=== PATIENT | male | born 1950 | race Caucasian/White ===

== ENCOUNTER 2016-07-02 09:51 | Observation (INO) | payer MEDICARE, BC ==
[2016-07-01 17:09] VITALS: BMI 30.2
[~2016-07-02] VITALS: Ht 172.7 cm; Wt 91.3 kg
[2016-07-02] VITALS (28 sets, daily range): BP systolic 101–152; BP diastolic 64–97; PULSE 84–137; RESP 6–20; Ht 172.7 cm; Wt 91.3 kg
[2016-07-02] MEDS ORDERED: MIDAZOLAM 1 MG/ML 2 ML INJ ONE (12:15)
[2016-07-02] MEDS ORDERED: FENTAnyl 50 MCG/ML VIAL ONE (12:15)
[2016-07-02] MEDS ORDERED: ROPIVACAINE 0.5 % 30 ML VIAL ONE (12:15)
[2016-07-02] MEDS ORDERED: BUPIVACAINE 0.25%/EPI (SDV) 30 ML INJ ONE ×2 (12:15→13:21)
[2016-07-02] MEDS ORDERED: GELATIN SIZE 100 SPONGE ONE (12:40)
[2016-07-02] MEDS ORDERED: POLYMYXIN/BACITRACIN 1L IRRIG ONE (12:40)
[2016-07-02] MEDS ORDERED: THROMBIN 5000 UNIT VIAL ONE ×2 (12:40→12:52)
--- NOTE | 2016-07-02 12:47 | HPN ---
Date/Time of Note Date/Time of Note DATE: 07/02/16 TIME: 12:47 Interval H&P Admission Note Pt. seen H&P reviewed: No system changes BREANA CROOK MD July 02, 2016 12:47
[2016-07-02] MEDS ORDERED: CA CHLORIDE 10% 10 ML SYRINGE ONE (12:52)
[2016-07-02] MEDS ORDERED: HEPARIN 1000 UNITS/ML 10 ML INJ ONE (12:53)
[2016-07-02] MEDS ORDERED: PHENYLephrine (100 MCG/ML) 5ML SYG ONE ×2 (12:56→14:02)
[2016-07-02] MEDS ORDERED: CEFAZOLIN 1 GM INJ IV SCH (13:00)
[2016-07-02] MEDS ORDERED: ONDANSETRON 4 MG INJ IV PRN ×2 (13:00→15:00)
[2016-07-02] MEDS ORDERED: ACETAMINOPHEN 325 MG TAB PO PRN (13:00)
[2016-07-02] MEDS ORDERED: DIPHENHYDRAMINE 25 MG CAP PO PRN (13:00)
[2016-07-02] MEDS ORDERED: morphine 10 MG INJ ONE (13:55)
[2016-07-02] MEDS ORDERED: CEFAZOLIN 1 GM/50 ML (PMX) 50 ML IVPB SCH ×2 (14:00)
[2016-07-02] MEDS ORDERED: oxyCODONE 5 MG TAB PO SCH (14:30)
[2016-07-02] MEDS ORDERED: DIPHENHYDRAMINE 50 MG INJ IV PRN (15:00)
[2016-07-02] MEDS ORDERED: morphine (1 MG/ML) 10ML SYRINGE IV PRN (15:00)
[2016-07-02] MEDS ORDERED: EPHEDrine SULFATE 50 MG/5 ML SYG IV PRN (15:00)
[2016-07-02] MEDS ORDERED: MEPERIDINE 25 MG INJ IV PRN (15:00)
[2016-07-02] MEDS ORDERED: LABETALOL HCL 20MG INJ IV PRN (15:00)
[2016-07-02] MEDS ORDERED: hydrALAzine 20 MG INJ IV PRN (15:00)
[2016-07-02] MEDS ORDERED: LIDOCAINE 2% (SDV) 5 ML INJ ONE (17:08)
[2016-07-02] MEDS ORDERED: ROCURONIUM 50 MG INJ ONE (17:08)
[2016-07-02] MEDS ORDERED: ONDANSETRON 4 MG INJ ONE (17:08)
[2016-07-02] MEDS ORDERED: CEFAZOLIN 1 GM INJ ONE (17:08)
[2016-07-02] MEDS ORDERED: ETOMIDATE 20 MG INJ ONE (17:08)
[2016-07-02] MEDS: FENTAnyl 50 MCG/ML VIAL IV PRN ×4 (17:55→18:52)
[2016-07-02] MEDS: morphine (1 MG/ML) 10ML SYRINGE IV PRN ×2 (18:53→19:17)
[2016-07-02] MEDS: morphine 10 MG INJ IV PRN (20:14)
[2016-07-02] MEDS ORDERED: MEPERIDINE 25 MG INJ IV ONE (21:00)
[2016-07-02] MEDS ORDERED: LOSARTAN 50 MG TAB PO SCH (21:00)
[2016-07-02] MEDS ORDERED: METOPROLOL 25 MG TAB PO ONE (23:00)
--- NOTE | 2016-07-02 23:11 | CONS ---
Date/Time of Note Date/Time of Note DATE: 07/02/16 TIME: 23:11 Assessment/Plan Assessment/Plan Additional Assessment/Plan 1. Afib with RVR - transfer to telemetry - cont Digoxin - s/p a dose of Beta-madina. If rate not controlled, will give IV med or start drip - Will obtain 2D-echo and place Cardiology consult - Re-start Xarelto tomorrow 2. s/p Right Foot Arthrodesis - cont pain med - mgmt per Orthp 3. Hx of PE - Re-start Xarelto tomorrow 4. hx of COPD: no sign of exacerbation - oxygen, bronchodilators as needed 5. HTN: BP within goal - cont meds and adjust as needed Consultation Date/Type/Reason Admit Date/Time July 02, 2016 at 09:51 Hx of Present Illness This is a 66 yo with hx of HTN, Afib, PE, COPD who is now s/p right foot Arthrodesis. Consult was placed for medical mgmt. Currently, pt does not have any complaints except intermittent pain at surgical site. He is however in A- fib with RVR with rate as high as 130. He will be transferred to telemetry unit. he has been given Lopressor. Denied chest pain, lightheadedness, shortness of breath. . Social History Smoking Status: Never smoker Exam/Review of Systems Vital Signs Vitals Vital Signs Date Time Temp Pulse Resp B/P Pulse Ox O2 Delivery O2 Flow Rate FiO2 07/02/16 20:15 98.3 103 20 152/97 94 Nasal Cannula 3.0 Exam Constitutional: alert, oriented, well developed Head: atraumatic, normocephalic Eyes: EOMI, PERRL Neck: non-tender, supple Respiratory: clear to auscultation, normal air movement Cardiovascular: irregular rhythm Gastrointestinal: non-tender, soft Extremities: other (Right lower ext surgical site covered.) Medications Medications Current Medications Morphine Sulfate (morphine) 5 mg Q4H PRN IV PAIN LEVEL 7-10 Last administered on 07/02/16t 20:14; Admin Dose 5 MG; Start 07/02/16 at 13:00 Ondansetron HCl (Zofran Inj) 4 mg Q4H PRN IV NAUSEA AND/OR VOMITING; Start 01/08 at 13:00 Diphenhydramine HCl (Benadryl) 25 mg Q4H PRN PO ITCHING; Start 07/02/16 at 13: 00 Acetaminophen (Tylenol Tab) 325 mg Q4H PRN PO PAIN AND OR ELEVATED TEMP; Start 07/02/16 at 13:00 Lansoprazole (Prevacid) 30 mg DAILY@06 GTB ; Start 07/03/16 at 06:00 Losartan Potassium (Cozaar) 100 mg DAILY PO Last administered on 07/02/16t 21: 30; Admin Dose 100 MG; Start 07/02/16 at 21:00 Digoxin (Digoxin) 0.25 mg DAILY@13 PO ; Start 07/03/16 at 13:00 Oxycodone HCl 10 mg 10 mg Q4H PO ; Start 07/03/16 at 00:00 Cefazolin Sodium (Ancef 1 Gm/50 ml (Pmx)) 50 ml @ 100 mls/hr Q8 IVPB ; Start at 06:00; Stop 07/04/16 at 14:29 CARLOS MCQUEEN MD July 02, 2016 23:11
[2016-07-02] MEDS: oxyCODONE 5 MG TAB PO SCH (23:39)
[2016-07-03] VITALS (8 sets, daily range): BP systolic 105–119; BP diastolic 60–77; PULSE 83–102; RESP 16–18
[2016-07-03] MEDS ORDERED: DILTIAZEM 25 MG INJ IV ONE (03:30)
--- NOTE | 2016-07-03 03:37 | RADRPT ---
PROCEDURE: Fluoroscopy services. CLINICAL INDICATION: Right foot pain. TECHNIQUE: Fluoroscopy services during right first and second tarsometatarsal joint arthrodesis wi th placement of internal metallic fixation. COMPARISON: None FINDINGS: Fluoroscopy services during right first and second tarsometatarsal joint arthrodesis with placement of internal metallic fixation. Multiple spot films were obtained at intermediate stages during this procedure and demonstrate localization, instrumentation and placement of internal metallic fixation of the first and second tarsometatarsal joints. A screw fixator traverses the Lisfranc interval. 91.3 seconds of fluoroscopy time were employed during this procedure. IMPRESSION: Fluoroscopy services during right first and second tarsometatarsal joint arthrodesis with placement of internal metallic fixation. RPTAT: [facility] Physician James Date Time Electronically viewed and signed by Physician James on 07/03/2016 03:36 RS/
[2016-07-03] MEDS: morphine 10 MG INJ IV PRN ×2 (04:20→10:32)
[2016-07-03] MEDS: oxyCODONE 5 MG TAB PO SCH ×4 (05:46→15:43)
[2016-07-03] MEDS: CEFAZOLIN 1 GM/50 ML (PMX) 50 ML IVPB SCH ×2 (05:47→13:51)
[2016-07-03] MEDS ORDERED: LANSOPRAZOLE 30 MG CAP GTB SCH (06:00)
[2016-07-03] MEDS ORDERED: DIGOXIN 0.25 MG TAB PO SCH (13:00)
--- NOTE | 2016-07-03 14:35 | PDOCDIS ---
Discharge Instructions CONDITION Patient Condition: Good HOME CARE INSTRUCTIONS: Diet Instructions: Regular ACTIVITY: Activity Restrictions: No Restrictions FOLLOW UP/APPOINTMENTS Appointments F/U WITH YOUR ORTHO INSTRUCTED AND YOUR PCP IN 1-2 WEEKS RORY MARC July 03, 2016 14:35
--- NOTE | 2016-07-03 14:54 | RADRPT ---
Echocardiogram Report Patient Name: SINDY HUANG Gender: Male Date: 1950 Study Date: 03-Jul-2016 Collateral Analyst: Sybil Chaney KARTHIK [facility] Ref. Physician: CARLOS MCQUEEN Quality: Adequate Procedures: Transthoracic echocardiogram with complete 2D, M-Mode, and doppler examination. Indications: Atrial Fibrillation w/RVR. 2D/M Mode Doppler Measurement Value Normal Ranges Measurement Value Normal Ranges LVIDd 2D 4.4 3.5 - 5.6 cm AV Peak Otis 1.2 m/sec LVIDs 2D 2.0 2.1 - 4.1 cm AV Peak PG 5.8 mmHg LVPWd 2D 1.1 0.6 - 1.1 cm TR Peak Otis 2.0 m/sec IVSd 2D 1.1 0.6 - 1.1 cm TR Peak PG 16.2 mmHg AoR Diam 2D 3.3 2.0 - 3.7 cm RVSP 24.0 mmHg EDV 2D 89.0 cm3 ESV 2D 8.2 cm3 LA Dimen 2D 3.8 2.3 - 4.0 cm Findings Left Ventricle: Lower limits of normal systolic function. Normal left ventricular cavity size. Mild concentric left ventricular hypertrophy. Ejection fraction is visually estimated at 5055 %. Tissue Doppler/Mitral Doppler indices are indeterminate in this study due to the presence of atrial fibrillation. Right Ventricle: Normal right ventricular size. Normal right ventricular systolic function. Left Atrium: There is mild enlargement of left atrium. Right Atrium: The right atrium is normal in size. Mitral Valve: Mitral valve leaflets appear mildly thickened. Trace mitral regurgitation. Aortic Valve: Aortic sclerosis without stenosis. Tricuspid Valve: Normal appearance of the tricuspid valve. Estimated peak PA systolic pressure 24 mmHg. There is trace tricuspid regurgitation. Pulmonic Valve: Normal pulmonic valve appearance. Pericardium: Normal pericardium with no significant pericardial effusion. Aorta: Normal aortic root. IVC: Dilated IVC with respiratory collapse consistent with elevated right atrial pressure. Conclusions 1.The left ventricle is normal in size with lower limits of normal systolic function. 2.Estimated left ventricular ejection fraction of 50-55%. 3.Mild concentric left ventricular hypertrophy. 4.Mild left atrial enlargement. Electronically Signed By: Rogelio Linares 03-Jul-2016 14:54:02 -0700 Patient Name: SINDY HUANG Study Date: 03-Jul-2016 [id number]
--- NOTE | 2016-07-03 16:13 | CONS ---
Date/Time of Note Date/Time of Note DATE: 07/03/16 TIME: 16:07 Assessment/Plan Assessment/Plan Chief Complaint/Hosp Course Assessment: Chronic atrial fibrillation - rapid ventricular response post-operatively, now rate-controlled Hypertension History of pulmonary embolism Status post right foot arthrodesis Recommendations: -echocardiogram showed LVEF 50-55%, mild LVH, mild LAE -continue digoxin 0.25mg daily, consider scheduled metoprolol if recurrent rapid ventricular rates -continue losartan 100mg daily -continue Xarelto 20mg daily Problems: Consultation Date/Type/Reason Admit Date/Time July 02, 2016 at 09:51 Type of Consultation: Cardiology Reason for Consultation atrial fibrillation with rapid ventricular response Hx of Present Illness The patient is a 66 year-old male with chronic atrial fibrillation who is status post right foot arthrodesis. Post-operatively, he went into a rapid ventricular response. He received IV diltiazem and PO metoprolol, and is now in rate-controlled atrial fibrillation. He denies chest pain or shortness of breath. 14 point review of systems negative other than per HPI. Past Medical History Chronic atrial fibrillation Hypertension History of pulmonary embolism Past Surgical History Bilateral rotator cuff surgeries Partial bowel resection secondary to obstruction Family History Significant Family History: no pertinent family hx Social History Smoking Status: Never smoker Exam/Review of Systems Vital Signs Vitals Vital Signs Date Time Temp Pulse Resp B/P Pulse Ox O2 Delivery O2 Flow Rate FiO2 07/03/16 15:27 97.5 91 18 118/77 96 07/03/16 08:00 Nasal Cannula 2.0 Intake and Output 07/02/16 07/02/16 07/03/16 15:00 23:00 07:00 Intake Total 1200 ml 650 ml 1210 ml Output Total 25 ml 600 ml 1200 ml Balance 1175 ml 50 ml 10 ml Exam Constitutional: alert, well developed Psych: nl mood/affect, no complaints Head: atraumatic, normocephalic Eyes: nl conjunctiva, nl lids ENMT: nl external ears & nose, nl nasal mucosa & septum Neck: non-tender, supple, No jvd Respiratory: clear to auscultation, normal air movement Cardiovascular: irregular rhythm, No murmurs/extra sounds Gastrointestinal: non-tender, soft Musculoskeletal: other (right foot post-operative) Extremities: No clubbing, No cyanosis, No edema Neurological: nl mental status, nl speech Results Results 24 hrs Laboratory Tests Test 07/03/16 04:29 Bedside Glucose 129 Medications Medications Current Medications Morphine Sulfate (morphine) 5 mg Q4H PRN IV PAIN LEVEL 7-10 Last administered on 07/03/16 10:32; Admin Dose 5 MG; Start 07/02/16 at 13:00 Ondansetron HCl (Zofran Inj) 4 mg Q4H PRN IV NAUSEA AND/OR VOMITING; Start 01/08 at 13:00 Diphenhydramine HCl (Benadryl) 25 mg Q4H PRN PO ITCHING; Start 07/02/16 at 13: 00 Acetaminophen (Tylenol Tab) 325 mg Q4H PRN PO PAIN AND OR ELEVATED TEMP; Start 07/02/16 at 13:00 Lansoprazole (Prevacid) 30 mg DAILY@06 GTB Last administered on 07/03/16 05:46 ; Admin Dose 30 MG; Start 07/03/16 at 06:00 Losartan Potassium (Cozaar) 100 mg DAILY PO Last administered on 07/02/16 21: 30; Admin Dose 100 MG; Start 07/02/16 at 21:00 Digoxin (Digoxin) 0.25 mg DAILY@13 PO Last administered on 07/03/16 13:50; Admin Dose 0.25 MG; Start 07/03/16 at 13:00 Oxycodone HCl 10 mg 10 mg Q4H PO Last administered on 07/03/16 15:43; Admin Dose 10 MG; Start 07/03/16 at 00:00 Cefazolin Sodium (Ancef 1 Gm/50 ml (Pmx)) 50 ml @ 100 mls/hr Q8 IVPB Last administered on 07/03/16 13:51; Admin Dose 100 MLS/HR; Start 07/03/16 at 06:00 ; Stop 07/04/16 at 14:29 JP GONCALVES MD July 03, 2016 16:13
--- NOTE | 2016-07-03 16:25 | DS ---
DATE OF ADMISSION: 07/02/2016 DATE OF DISCHARGE: 07/03/2016 DISCHARGE DIAGNOSES: 1. Right foot arthrodesis cleared for discharge per orthopedics. 2. Atrial fibrillation with rapid ventricular response, rate is now stable. Continue home medicati ons including digoxin and Xarelto. 3. History of pulmonary embolism resume Xarelto. 4. History of chronic obstructive pulmonary disease, stable. 5. Hypertension, stable. Continue home medications. HOSPITAL COURSE: The patient is a 66-year-old male with a history of atrial fibrillation for many y ears, now hypertension, PE and COPD. The patient had a scheduled right foot arthrodesis. The patie nt did go into atrial fibrillation with RVR with heart rate as high as 130. The patient was transfe rred to telemetry, he was monitored. He was given a pressor. The patient had no chest pain, lighth eadedness or shortness of breath. The patient was stable, cleared for discharge per ortho. His hea rt rate did stabilize. On the day of discharge, the patient's vitals, labs, physical exam were stab le and no acute complaints. Questions were answered. CONDITION ON DISCHARGE: Stable. DISPOSITION: To home. MEDICATIONS: The patient to continue his usual home medications. No new medications were prescribe d by myself FOLLOWUP: He is to follow up with PCP in 1 to [address] Ely of orthopedics as indicat ed. Greater than 30 minutes was spent coordinating discharge of patient. Dictated By: RORY MARC MD BS/NTS Conf#: [id number] DID#: [id number]
[2016-07-03] MEDS ORDERED: RIVAROXABAN 10 MG TABLET PO SCH (17:55)
--- NOTE | 2016-07-03 18:49 | OPR ---
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 OPERATION PERFORMED: 1. Right foot mid foot arthrodesis of the first, second and third tarsometatarsal joint with the iliac crest autograft as well as allograft including [employer] augment and bone marrow aspirate concentrate. 2. Platelet rich plasma and bone marrow aspirate concentrate injection to both the right talonavicular joint and navicular cuneiform joint. SURGEON: Tyrell Ely MD. ANESTHESIOLOGIST: CLAUDIA CENTENO MD. ANESTHESIA: General with popliteal block. TOURNIQUET TIME: 125 minutes at 250 mmHg. IMPLANTS: 1. [employer] staple 2. [employer] Compression claw plates. COMPLICATIONS: None. INDICATIONS AND PROCEDURE: The patient is a 66-year-old gentleman status post injury to the right foot, sustaining a Lisfranc fracture dislocation, treated nonoperatively. The patient was continued with ongoing pain along mid foot with documented arthritis of the first, second and third tarsometatarsal joint. RISK NOTE: Risks and benefits of surgery in the patient's [place] language including, but not limited to infection, bleeding, loss of life, need for future surgery, patient acknowledges risks and signed the surgical consent form. OPERATIVE NOTE: The patient was met in the preoperative holding area and given preoperative regional block anesthesia and preoperative antibiotics. With the patient in the operative theater, placed supine on operating table, given preoperative antibiotics. The patient prepped and draped in normal sterile fashion. Time-out was taken to the operating room agreed correct patient, correct extremity and correct procedure. Patient was met in the preoperative holding area and her operative extremity was both marked and confirmed with both patient and consent. Patient was then brought back to the operative theater placed supine on the operative table and given regional block anesthesia and antibiotics. Patient was then prepped and draped in the normal sterile fashion and a timeout was taken. All parties in the room agreed it was the correct patient, extremity and correct procedure. Initially attention was turned to the right iliac crest where a small incision was made just proximal to the ASIS. Iliac crest bone was harvested using an [employer] bone harvesting reamer. Bone marrow aspirate concentrate was also removed from this area at this time and sent off for centrifuge with [id number] centrifuge. The wound was irrigated thoroughly and closed with 3-0 Monocryl followed by 4-0 Monocryl and Steri-Strips. The wound was dressed with 4 x 4's and Tegaderm. Attention was then turned to the right lower extremity. Tourniquet was brought up to 250 mmHg. Incision was made over the first and second metatarsal and incision was brought down deep to the extensor hallucis brevis and the neurovascular bundle was identified and protected and retracted. The first tarsometatarsal joint was exposed and prepared removing all cartilage on both sides of the joint and the subchondral bone was curetted and penetrated with a drill to promote fusion. Scar tissue was removed between the base of the second metatarsal and first cuneiform to allow for reduction of the second metatarsal base. Once the joint was adequately debrided the first metatarsal base was then pinned to the first cuneiform while providing provisional fixation. The deformity was reduced with the ankle in dorsiflexion and the toes in dorsiflexion to promote proper alignment. The second metatarsal was then debrided in the similar fashion and the subchondral bone on both the cuneiform and the metatarsal were adequately debrided and using a drill to promote subchondral penetration. A another guidepin was then placed all fixation of the middle column with again the ankles and toes in dorsiflexion. the first plate was then sized and then attention was then turned to the Lisfranc screw placement. A Lisfranc screw was placed from the first cuneiform to the base of the second metatarsal in order to stabilize the base of the second metatarsal. Then turned to placement of the dorsal compression plate and the first and second tarsometatarsal joint dorsal compression plates were then applied after iliac crest bone autograft and bone marrow aspirate concentrate had been mixed with [employer] and Augment. The allograft and autograft mixture was then placed into the first and second tarsometatarsal joint and the dorsal compression plates were then applied. The plates had been precontoured to prevent dorsiflexion. And locking screws and compression screws were placed into the plate. Fluoroscopic guidance confirmed on the AP oblique and lateral view that the plates were placed in the excellent position and the joints were well aligned. The claw plates were then compressed at this time Incision was then made over the third and fourth tarsometatarsal joint and brought down to the third TMT joint. The third tarsometatarsal joint was then debrided and prepared in a similar fashion as previously mentioned with subchondral bone which was an penetrated in the cartilage removed. And then using a [employer] staple the joints were then held in position and compressed in the typical fashion with the autograft and allograft mixture placed into the third TMT joint prior to staple compression. All wounds were irrigated thoroughly and closed in layers with 3-0 Monocryl followed by 4-0 nylon in vertical mattress fashion. All wounds were dressed with Xeroform Betadine ointment 4 x 4's several ABDs and placed in a well- padded short leg cast. All sponge needle counts were correct and the patient was brought to the PACU in stable condition. Dictated By: TYRELL ANAYA/SUNITHA Conf#: [id number] DID#: [id number] MTDD
== END 2016-07-03 16:23 | disposition home or self-care (01) ==
LOC: REC 09:51 → INTOOBSV 09:51 → MS1 20:11 → TEL 07-03 00:30
PROVIDERS: ADMIT Orthopaedic Surgery; ATTEND Orthopaedic Surgery
DX: M19.071 Primary osteoarthritis, right ankle and foot (principal); I10 Essential (primary) hypertension; J44.9 Chronic obstructive pulmonary disease, unspecified; Z86.711 Personal history of pulmonary embolism; I48.2 Chronic atrial fibrillation; Z79.01 Long term (current) use of anticoagulants; E66.9 Obesity, unspecified; Z68.30 Body mass index [BMI] 30.0-30.9, adult
CPT/HCPCS: 20900; 28740; 73630; 82306; 82962; 86999; 93306; 96365; 96375; 96376; 97116; 97163; 97530; C1713; G0378; J0690; J1644; J2175; J2250; J2270; J2405; J2795; J3010; 99217; J2370